=== PATIENT | female | born 1985 | race Caucasian/White ===

== ENCOUNTER 2016-11-14 07:25 | Emergency (ER) | payer BC ==
[~2016-11-14] VITALS: Ht 175.3 cm; Wt 61.2 kg
[2016-11-14 07:52] LABS: BASO % 1 % (0-3); EOS # 0.1 x10^3/uL (0.0-0.7); EOS % 2 % (0-3); HEMOGLOBIN 13.1 g/dL (12.0-15.5); LYMPH # 2.4 x10^3/uL (1.0-4.8); LYMPH % 36 % (24-48); MEAN CORPUSCULAR HEMOGLOBIN 27 pg (25-35); MEAN CORPUSCULAR HGB CONC 34 g/dL (31-37); MEAN CORPUSCULAR VOLUME 81 fL (79-100); MONO # 0.6 x10^3/uL (0.0-1.1); MONO % 9 % (0-9); NEUT # 3.5 x10^3uL (1.8-7.7); NEUT % 53 % (31-73); PLATELET COUNT 312 x10^3/uL (140-400); RED BLOOD COUNT 4.81 x10^6/uL (3.50-5.40); RED CELL DISTRIBUTION WIDTH 15.5 % (11.5-14.5); WHITE BLOOD COUNT 6.6 x10^3/uL (4.0-11.0)
--- NOTE | 2016-11-14 07:56 | PHYS DOC ---
General Chief Complaint: HYPOGLYCEMIA Stated Complaint: DIABETIC PROBLEM Time Seen by MD: 07:33 Source: patient, family Exam Limitations: clinical condition Problems: History of Present Illness Initial Comments Patient is a 31-year-old female with history of diabetes and insulin pump brought to the ED by her spouse due to altered mental status. Patient's spouse states that he awoke this morning and was was acting different. He was unable to locate her glucometer to check her sugars at home so he brought her to the emergency department. On arrival of patient's alert but slow to answer fingerstick blood sugar is 24. She received 2 orange juices upon arrival, and has since been given milk a sandwhich and more juice. She is tachycardic on arrival but denies any chest pain or trouble breathing. No headache or focal neurologic deficits. ED vitals: 97.8, 106, 16, 1087, 100% room air Timing/Duration: unsure Severity: moderate Modifying Factors: improves with eating, improves with medication, worse with movement Associated Symptoms: malaise, weakness, other Allergies: Coded Allergies: No Known Drug Allergies (Unverified , 11/14/16) Past Medical History Medical History: other (diabetes) Surgical History: noncontributory Social History Smoker: non-smoker Alcohol: none Drugs: none Review of Systems Constitutional: denies chills, denies fever, malaise, weakness EENTM: denies eye pain, denies tearing, denies ear pain, denies nose pain Respiratory: denies cough, denies shortness of breath, denies wheezing Cardiovascular: denies chest pain, denies palpitations, denies syncope Gastrointestinal: denies abdominal pain, denies nausea, denies vomiting Genitourinary: denies dysuria, denies frequency, denies hematuria Musculoskeletal: denies back pain, denies joint swelling, denies neck pain Psychiatric/Neurological: see HPI, denies headache, denies numbness, denies paresthesia Physical Exam General Appearance: WD/WN, no apparent distress Eyes: bilateral eye normal inspection, bilateral eye PERRL, bilateral eye EOMI Ear, Nose, Throat: hearing grossly normal, normal ENT inspection, normal pharynx Neck: non-tender, supple Respiratory: normal breath sounds, no respiratory distress Cardiovascular: normal peripheral pulses, tachycardia Gastrointestinal: non tender, soft Back: no CVA tenderness, no vertebral tenderness Extremities: non-tender, normal inspection, no calf tenderness 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 She refuses D50. She is requesting discharge home. She is very educated on her disease and how it affects her body. I discussed the treatment plan patient was agreeable. Departure Time of Disposition: 08:43 Disposition: 01 HOME, SELF-CARE Diagnosis: hypoglycemia Condition: IMPROVED Patient Instructions: Hypoglycemia, [id number] Additional Instructions: Continue your diabetes care as before. Continue to maintain consistent ADA diet. Ensure that all members of the household know where the glucometer is and how to use it and what to do in the event that you do have a recurrence of low blood sugar. Follow-up with your doctor next week for a recheck and to ensure that your home is working correctly. Return to the ED with new or changing symptoms. BRAIN ARCHIBALD DO Nov 14, 2016 07:56
[2016-11-14] MEDS: IV NORMAL SALINE 1,000ML 1,000 ML IV SCH (08:03)
[2016-11-14 08:06] LABS: CALCIUM 9.2 mg/dL (8.5-10.1); CREATININE 0.8 mg/dL (0.6-1.0); GFR 84.8; POTASSIUM 3.6 mmol/L (3.5-5.1); TOTAL BILIRUBIN 0.3 mg/dL (0.2-1.0)
[2016-11-14] MEDS ORDERED: DEXTROSE 50% 25 GM / 50ML DISP.SYRIN. IV ONE (08:15)
[2016-11-14 08:44] VITALS: BP 98/61
== END 2016-11-14 08:54 | disposition home or self-care (01) ==
LOC: ER 07:25
DX: E11.649 Type 2 diabetes mellitus with hypoglycemia without coma (principal); R41.82 Altered mental status, unspecified
CPT/HCPCS: 36415; 80053; 82947; 85025; 96360; 99284-25; J7030

== ENCOUNTER 2018-03-20 15:17 | Emergency (ER) | payer BC, OTHER ==
--- NOTE | 2018-03-20 19:08 | PHYS DOC ---
Past History Past Medical History: Diabetes, Endometriosis Past Surgical History Explored of laparoscopy including resection of endometrial tissue. No abnormal tissue was resected at that time. Smoking: Cigarettes Alcohol Use: None Drug Use: None Adult General Chief Complaint Chief Complaint: ABDOMINAL PAIN HPI HPI Patient is a 33 year old F who presents with mild dull left lower quadrant, pain with fluctuating intensity over the past several days. We have does have a history of endometriosis which has been surgically resected. She has been off her control of the past 3 years as she is trying to get . Her symptoms were much worse over this period of time. Her last period was approximately 2 weeks ago. She is having normal bowel movements. She is urinating normally. She has no other associated symptoms. She has no exacerbating or alleviating factors. Review of Systems Review of Systems Constitutional: Denies fever or chills [] Eyes: Denies change in visual acuity, redness, or eye pain [] HENT: Denies nasal congestion or sore throat [] Respiratory: Denies cough or shortness of breath [] Cardiovascular: No additional information not addressed in HPI [] GI: Negative except history of present illness : Denies dysuria or hematuria [] Musculoskeletal: Denies back pain or joint pain [] Integument: Denies rash or skin lesions [] Neurologic: Denies headache, focal weakness or sensory changes [] Endocrine: Denies polyuria or polydipsia [] All other systems were reviewed and found to be within normal limits, except as documented in this note. Family History Family History No pertinent family medical history was reported Current Medications Current Medications Current medications were reviewed Allergies Allergies Allergies Coded Allergies Type Severity Reaction Last Updated Verified No Known Drug Allergies 11/14/16 No Physical Exam Physical Exam Constitutional: Well developed, well nourished, no acute distress, non-toxic appearance. [] HENT: Normocephalic, atraumatic, Eyes: PERRLA, EOMI, conjunctiva normal, no discharge. [] Neck: Normal range of motion, no tenderness, supple, no stridor. [] Cardiovascular:Heart rate regular rhythm, Lungs & Thorax: Bilateral breath sounds clear to auscultation [] Abdomen: Bowel sounds normal, soft, no masses, no pulsatile masses. [] Generalized lower abdominal pain worse on the left than the right. Skin: Warm, dry, no erythema, no rash. [] Extremities: No tenderness, no cyanosis, no clubbing, ROM intact, no edema. [] Neurologic: Alert and oriented X 3, normal motor function, normal sensory function, no focal deficits noted. [] Psychologic: Affect normal, judgement normal, mood normal. [] Current Patient Data Vital Signs Vital signs. Please review nursing documentation for specifics EKG EKG [] Radiology/Procedures Radiology/Procedures Pelvic ultrasound revealed a right ovarian cyst measuring 2.1 x 1.5 x 2.1 cm Course & Med Decision Making Course & Med Decision Making Pertinent Labs and Imaging studies reviewed. (See chart for details) [] Dragon Disclaimer Dragon Disclaimer This electronic medical record was generated, in whole or in part, using a voice recognition dictation system. Departure Departure: Impression: Primary Impression: Abdominal pain Disposition: HOME, SELF-CARE Condition: STABLE Referrals: BENJAMIN WOLF (PCP) Patient Instructions: Endometriosis Additional Instructions: Umu was seen in the emergency department for abdominal pain. No emergency medical condition was found on history or physical exam. She did have an ultrasound of her pelvis which included findings of a right ovarian cyst. She was advised follow up with her primary care doctor as needed for further management. She was also advised to return to the emergency room as soon as possible if she develops new or worsening symptoms. Problem Qualifiers Primary Impression: Abdominal pain Abdominal location: lower abdomen, unspecified Qualified Codes: R10.30 - Lower abdominal pain, unspecified GERARD MIRELES MD Mar 20, 2018 19:08
[2018-03-20 19:15] VITALS: BP 100/74
--- NOTE | 2018-03-20 19:48 | RAD ---
Examination: US PELVIS W/TV History: PELVIC PAIN Comparison/Correlation: None Findings: Transabdominal and transvaginal pelvic ultrasound exam was performed. Transvaginal technique was utilized to better assess the adnexal structures. Uterus measures 7.18 x 4.5 cm x 7.1 cm. Myometrium is normal. Endometrial thickness of 0.9 cm is present. No intrauterine gestation. Right adnexa measures 4.2 cm x 3.5 cm x 4.2 cm. Left adnexa measures 2.8 cm x 1.6 cm x 2.1 cm. Right ovarian follicle measuring up to 2.1 cm diameter is present. Smaller follicles are also seen. No suspicious adnexal mass lesion. No pelvic free fluid. Ovaries have normal flow on color and spectral Doppler imaging. No evidence of ovarian torsion. Impression: Physiologic ovarian follicles. No suspicious process. Electronically signed by: Scott Borden MD (03/20/2018 7:44 PM) [facility]
== END 2018-03-20 19:31 | disposition home or self-care (01) ==
LOC: ER 15:17
DX: R10.32 Left lower quadrant pain (principal); N83.201 Unspecified ovarian cyst, right side; E11.9 Type 2 diabetes mellitus without complications; F17.210 Nicotine dependence, cigarettes, uncomplicated
CPT/HCPCS: 76830; 76856; 99284-25

== ENCOUNTER → 2019-01-24 | Outpatient (CLI) | payer BC ==
--- NOTE | 2019-01-24 15:53 | RAD ---
STUDY: CT chest without contrast INDICATION: Cyclical dyspnea. History of endometriosis. COMPARISON: None. TECHNIQUE: Helical CT imaging of the chest performed without the use of intravenous contrast. Sagittal and coronal reformats were obtained. One or more of the following individualized dose reduction techniques were utilized for this examination: 1. Automated exposure control 2. Adjustment of the mA and/or kV according to patient size 3. Use of iterative reconstruction technique. FINDINGS: Vasculature: Normal caliber of the thoracic and visualized abdominal aorta. Normal main pulmonary artery caliber. Mediastinum/farida: Soft tissue density at the anterior mediastinum with intermixed fat, image 42 series 3, most compatible with residual thymic tissue. No pericardial effusion. No mediastinal or hilar adenopathy. Lungs: No pneumothorax. Groundglass nodule extending to the pleura within the left lower lobe laterally, image 58 series 3, measuring 5 mm. No pleural effusion, pneumothorax or lobar infiltrate. Neck/axilla/chest wall: Unremarkable thyroid and axilla. No discrete abnormality of either breast. Bones: Unremarkable osseous structures. Upper abdomen: No abnormality seen at the upper abdomen. IMPRESSION: No abnormality of the chest is identified to account for the patient's cyclical dyspnea. No pneumothorax. A small groundglass pulmonary nodule extending to the pleura at the left lower lobe measures 5 mm and is unlikely clinically significant. No dedicated follow-up is needed based on size unless there are risk factors for lung malignancy in which case optional CT of the chest could be performed in 12 months. Electronically signed by: SHAMAR CARRILLO MD (01/24/2019 3:51 PM) [facility]
== END | disposition home or self-care (01) ==
LOC: CT 15:02
DX: R91.1 Solitary pulmonary nodule (principal); N80.9 Endometriosis, unspecified
CPT/HCPCS: 71250

== ENCOUNTER → 2019-10-19 | Outpatient (CLI) | payer BC ==
[~2019-10-19] MED LIST: CONTRAST GIVEN. MC PRN; IOHEXOL 240 MG/ML 50ML VIAL. ONE; IOHEXOL 240 MG/ML 50ML VIAL. PO ONE; IOHEXOL 300 MG/ML 75 ML VIAL. IV ONE
--- NOTE | 2019-10-19 14:51 | RAD ---
EXAM: CT Chest, Abdomen, and Pelvis with IV contrast INDICATION: Reason: ATYPICAL ENDOMETROSIS, SEVERE PAIN EVERYWHERE / Spl. Instructions: [id number] / History: TECHNIQUE: Multi-detector row CT images were acquired from the thoracic inlet through the ischial tuberosities with the use of IV contrast. Sagittal and coronal images were acquired from the transaxial data. All CT scans performed at this facility utilize dose optimization techniques as appropriate to the exam, including the following: Automated exposure control and adjustment of the mA and/or KV according to patient size (this includes techniques or standardized protocols for targeted exams where dose is indication/reason for exam). IV CONTRAST: Administered ORAL CONTRAST: administered COMPARISON: Abdomen pelvis CT with IV contrast of 11/03/2017, 01/24/[address] without IV contrast.. FINDINGS: CHEST: CARDIOVASCULAR: Unremarkable MEDIASTINUM & DENG: No adenopathy or masses. LUNGS: No pulmonary infiltrate, nodule, or other focal abnormality. PLEURAL SPACE: No pleural effusions or pneumothorax. There are interval surgical sutures along the right diaphragm. OSSEOUS & SOFT TISSUE: Unremarkable ABDOMEN/PELVIS: LIVER: Unremarkable BILIARY SYSTEM: Gallbladder is unremarkable. Bile ducts are not dilated. PANCREAS: Unremarkable SPLEEN: Unremarkable ADRENALS: Unremarkable KIDNEYS & URETERS: Unremarkable BLADDER: Unremarkable REPRODUCTIVE ORGANS: Dominant left adnexal cyst measuring 4.4 cm is present along with multiple cysts in the right adnexa. The large, complex fluid collection crossing midline in the pelvis are evident previously has markedly improved or resolved. There are new sutures along the right adnexa, compatible with interval pelvic surgery. A vaginal tampon is present. GASTROINTESTINAL: No findings of bowel obstruction, perforation or acute inflammation. There are suture like material around the rectosigmoid junction compatible with interval bowel surgery. The appendix is not well seen. There are no findings of acute appendicitis. MESENTERY/PERITONEUM/RETROPERITONEUM: Unremarkable VASCULAR: Unremarkable LYMPH NODES: No adenopathy OSSEOUS & SOFT TISSUES: Unremarkable IMPRESSION: 1. Marked interval improvement in complex cystic masses in the pelvis with residual bilateral adnexal cysts following interval bowel and right adnexal surgery. Cannot exclude residual or recurrent endometriosis. Pelvis MRI could help further evaluate if clinically warranted. 2. Interval postoperative changes at the right lung base along the diaphragm with no acute cardiopulmonary process shown. Electronically signed by: Abrahan Carreno MD (10/19/2019 2:48 PM) [facility] [place]
== END | disposition home or self-care (01) ==
LOC: CT 10:31
PROVIDERS: ATTEND Family Medicine Obesity Medicine
DX: N80.8 Other endometriosis (principal); R52 Pain, unspecified
CPT/HCPCS: 71260; 74177; Q9967